=== PATIENT | male | born 1980 | race Caucasian/White ===

== ENCOUNTER 2022-10-03 18:00 | Emergency (ER) | payer BC, OTHER ==
[~2022-10-03] VITALS: Ht 168 cm; Wt 100.0 kg
--- NOTE | 2022-10-03 18:42 | ED Cardiac General ---
History of Present Illness General Chief Complaint: Chest Pain Stated Complaint: CHEST DISCOMFORT Nursing Triage Note: Patient ambulatory to room 4 in ER w c/o chest pain in the lower anterior region of the chest for "going on 2 weeks." Patient states his watch alerted him today that his heart rate dropped into the high 40's. Source: patient Exam Limitations: no limitations History of Present Illness Date Seen by Provider: Oct 03, 2022 Time Seen by Provider: 18:25 Initial Comments Patient is a 42-year-old male history of hypertriglyceridemia and hypertension who presents to the emergency room with a chief complaint of having a very low heart rate today while he was out at the [employer] theater' with his family. He also over the last several weeks has had periodic alerts from his watch that his heart rates been very high. He states he has not felt "quite right" periodically over the last several months. He moved in May from [facility] to [place]. He has been followed by a nursing scheduler for his high blood pressure and hypertriglyceridemia. He has had a stress test in 2018. Former light recreational smoker, nothing long-term. No family history of early coronary artery disease. He is not a diabetic. He states his only risk factor for his hypertension is really his weight. He is slightly obese. He denies shortness of breath, nausea or sweating. He does have a history of "GI issues". He has had prior partial sigmoid colectomy due to diverticulitis that ruptured. No concerns currently. No recent febrile illnesses. No COVID concerns. He does not take any stimulant medications. He does not use "energy drinks". He states the reason he came into the emergency department today was just because he got "freaked out" and needed some reassurance. At present completely asymptomatic heart rate in the 80s and 90s. Timing/Duration: 1 hour Severity: mild Prior CP/Workup: stress test (2018) NTG SL WRINGER MACHINE OPERATOR: No ASA po WRINGER MACHINE OPERATOR: No Associated Systoms: Other (palpitations, low heart rate) Allergies and Home Medications Patient Home Medication List Home Medication List Reviewed: Yes Review of Systems Review of Systems Constitutional: see HPI EENTM: No Symptoms Reported Respiratory: No Symptoms Reported Cardiovascular: Palpitations, Other (Low heart) Gastrointestinal: No Symptoms Reported Genitourinary: No Symptoms Reported Musculoskeletal: no symptoms reported Skin: no symptoms reported Psychiatric/Neurological: Anxiety All Other Systems Reviewed Negative Unless Noted: Yes Past Czlbrmy-Ruucdd-Mcytti Hx Patient Social History Tobacco Use?: No Substance use?: No Alcohol Use?: No Immunizations Up To Date COVID19 Vaccine Engineering Agent: moderna Physical Exam Vital Signs Vital Signs - First Documented 10/03/22 18:08 Temp 36.1 Pulse 99 Resp 18 B/P (MAP) 148/123 (131) Pulse Ox 97 O2 Delivery Room Air Capillary Refill : Less Than 3 Seconds Height, Weight, BMI Height: '" Weight: lbs. oz. kg; 35.00 BMI Method: General Appearance: No Apparent Distress, WD/WN HEENT: PERRL/EOMI Neck: Normal Inspection, Non Tender, Supple Respiratory: Lungs Clear, Normal Breath Sounds, No Accessory Muscle Use, No Respiratory Distress Cardiovascular: Regular Rate, Rhythm, No Gallop, No Murmur, Normal Peripheral Pulses Gastrointestinal: Normal Bowel Sounds, Non Tender, Soft Extremity: Normal Capillary Refill, Normal Inspection, Normal Range of Motion, Non Tender, No Calf Tenderness Neurologic/Psychiatric: Alert, Oriented x3, No Motor/Sensory Deficits Skin: Normal Color, Warm/Dry Progress/Results/Core Measures Results/Orders Lab Results Laboratory Tests Test 10/03/22 18:10 Range/Units White Blood Count 11.3 H 4.3-11.0 10^3/uL Red Blood Count 5.56 H 4.30-5.52 10^6/uL Hemoglobin 16.1 13.3-17.7 g/dL Hematocrit 46 40-54 % Mean Corpuscular Volume 82 80-99 fL Mean Corpuscular Hemoglobin 29 25-34 pg Mean Corpuscular Hemoglobin Concent 35 32-36 g/dL Red Cell Distribution Width 12.7 10.0-14.5 % Platelet Count 243 130-400 10^3/uL Mean Platelet Volume 9.7 9.0-12.2 fL Immature Granulocyte % (Auto) 0 % Neutrophils (%) (Auto) 61 42-75 % Lymphocytes (%) (Auto) 29 12-44 % Monocytes (%) (Auto) 6 0-12 % Eosinophils (%) (Auto) 4 0-10 % Basophils (%) (Auto) 0 0-10 % Neutrophils # (Auto) 6.9 1.8-7.8 10^3/uL Lymphocytes # (Auto) 3.3 1.0-4.0 10^3/uL Monocytes # (Auto) 0.7 0.0-1.0 10^3/uL Eosinophils # (Auto) 0.4 H 0.0-0.3 10^3/uL Basophils # (Auto) 0.0 0.0-0.1 10^3/uL Immature Granulocyte # (Auto) 0.1 0.0-0.1 10^3/uL Prothrombin Time 12.7 12.2-14.7 SEC INR Comment 0.9 0.8-1.4 Activated Partial Thromboplast Time 29 24-35 SEC D-Dimer < 0.27 0.00-0.49 UG/ML Sodium Level 138 135-145 MMOL/L Potassium Level 3.3 L 3.6-5.0 MMOL/L Chloride Level 102 98-107 MMOL/L Carbon Dioxide Level 25 21-32 MMOL/L Anion Gap 11 5-14 MMOL/L Blood Urea Nitrogen 13 7-18 MG/DL Creatinine 1.01 0.60-1.30 MG/DL Estimat Glomerular Filtration Rate 94 BUN/Creatinine Ratio 13 Glucose Level 121 H 70-105 MG/DL Calcium Level 9.4 8.5-10.1 MG/DL Corrected Calcium 9.0 8.5-10.1 MG/DL Magnesium Level 2.2 1.6-2.4 MG/DL Total Bilirubin 0.6 0.1-1.0 MG/DL Aspartate Amino Transf (AST/SGOT) 24 5-34 U/L Alanine Aminotransferase (ALT/SGPT) 40 0-55 U/L Alkaline Phosphatase 75 40-136 U/L Troponin I < 0.028 <0.028 NG/ML Total Protein 7.8 6.4-8.2 GM/DL Albumin 4.5 3.2-4.5 GM/DL My Orders Orders - EDELMIRA MENDOZA MD Cbc With Automated Diff (10/03/22 18:41) Magnesium (10/03/22 18:41) Chest 1 View, Ap/Pa Only (10/03/22 18:41) Comprehensive Metabolic Panel (10/03/22 18:41) Protime With Inr (10/03/22 18:41) Partial Thromboplastin Time (10/03/22 18:41) O2 (10/03/22 18:41) Monitor-Rhythm Ecg Trace Only (10/03/22 18:41) Ed Iv/Invasive Line Start (10/03/22 18:41) Troponin I Prentiss (10/03/22 18:41) Fibrin Degradation Products (10/03/22 18:41) Vital Signs/I&O 10/03/22 10/03/22 18:08 20:00 Temp 36.1 36.1 Pulse 99 84 Resp 18 18 B/P (MAP) 148/123 (131) 129/89 Pulse Ox 97 97 O2 Delivery Room Air Room Air Blood Pressure Mean: 131 Progress Progress Note : Time: 19:54 Progress Note Patient seen and examined by me, 42-year-old with palpitations/episodic bradycardia. Evaluation today includes physical exam, CBC, chemistry, troponin, D-dimer, EKG, chest x-ray patient's exam is overall not concerning. No abnormal cardiac murmurs, clear lungs, soft abdomen. Normal vital signs, no hypoxia/tachycardia or bradycardia. Normal blood pressure. No lower extremity swelling or pain. Differential diagnosis includes arrhythmia versus electrolyte disturbance impacting heart rhythm. Labs reviewed and all within normal limits. Troponin undetectable, D-dimer undetectable. Chest x-ray is normal, EKG shows normal sinus rhythm at 94 beats a minute with slightly prolonged QRS. Patient has remained asymptomatic throughout his stay here in the emergency department. I have reassured him that the work-up today is unremarkable. I did recommend follow-up with cardiology and gave him information for Dr. Correa who is on our call schedule today. I also provided him with a local physician list for continued routine health maintenance. The patient verbalized understanding and is comfortable with the plan of care. All questions are sought and answered. Patient is stable for discharge. Initial ECG Impression Date: Oct 03, 2022 Initial ECG Impression Time: 18:10 Initial ECG Rate: 94 Initial ECG Rhythm: Normal Sinus Initial ECG Intervals ID 143 QRS 124 QTc 447 Initial ECG Impression: Normal Comment No ST segment elevation or depression is noted. Q waves lead III. Slightly prolonged QRS at 124/nonspecific intraventricular conduction delay. Diagnostic Imaging Diagonstic Imaging: Xray Plain Films/CT/US/NM/MRI: chest Comments [facility]. [place], [place] NAME: HAYDEE MONTENEGRO Suzanne [facility] REC#: [id number] PT STATUS: REG ER : 1980 PHYSICIAN: EDELMIRA MENDOZA MD ADMIT DATE: 10/03/22/ER Draft Date of Exam:10/03/22 CHEST 1 VIEW, AP/PA ONLY EXAMINATION: Chest 1 view. HISTORY: Chest pain. COMPARISON: None available. FINDINGS: The lungs are clear without edema or pneumonia. No pleural effusion or pneumothorax. Heart size is normal. A small nodule projecting over the left lung base is favored to be calcified. IMPRESSION: 1. No acute abnormality in the chest. 2. Small nodule projecting over the left lower chest is favored to be calcified but a chest CT is recommended for confirmation. Dictated on workstation # [id number] Dict: 10/03/22 1856 Trans: 10/03/22 1901 [facility] [id number] Interpreted by: MAGDY WISE MD Electronically signed by: Departure Impression Primary Impression: Palpitations Additional Impression: concern for bradycardia Disposition: 01 HOME, SELF-CARE Condition: Stable Departure-Patient Inst. Decision time for Depature: 19:52 Referrals: SARA CORREA MD NO,LOCAL PHYSICIAN (PCP) Primary Care Physician Patient Instructions: LOCAL PHYSICIAN LIST, Palpitations (DC) Add. Discharge Instructions: Please continue your daily routine home medications. If you develop symptoms with either slow heartbeat or very rapid heartbeat such as shortness of breath, chest pain, nausea or sweating please come back to the emergency room for reevaluation. I have attached contact information for Dr. Correa our nursing scheduler on-call. I will send a copy of your chart and lab work to his office. I have also put a local physician list referral list on your discharge packet. You can use this for primary care follow-up. If you have any other new, concerning or emergent complaints please come back to the emergency room for reevaluation. Copy Copies To 1: SARA CORREA MD, KATHRYN M MD Oct 03, 2022 18:42
[2022-10-03 18:49] LABS: BASOPHILS % (AUTO) 0 % (0-10); EOSINOPHILS # (AUTO) 0.4 10^3/uL (0.0-0.3); EOSINOPHILS % (AUTO) 4 % (0-10); HEMATOCRIT 46 % (40-54); HEMOGLOBIN 16.1 g/dL (13.3-17.7); LYMPHOCYTES # (AUTO) 3.3 10^3/uL (1.0-4.0); LYMPHOCYTES % (AUTO) 29 % (12-44); MEAN CORPUSCULAR HEMOGLOBIN 29 pg (25-34); MEAN CORPUSCULAR HGB CONC 35 g/dL (32-36); MEAN CORPUSCULAR VOLUME 82 fL (80-99); MEAN PLATELET VOLUME 9.7 fL (9.0-12.2); MONOCYTES # (AUTO) 0.7 10^3/uL (0.0-1.0); MONOCYTES % (AUTO) 6 % (0-12); NEUTROPHILS # (AUTO) 6.9 10^3/uL (1.8-7.8); NEUTROPHILS % (AUTO) 61 % (42-75); PLATELET COUNT 243 10^3/uL (130-400); WHITE BLOOD COUNT 11.3 10^3/uL (4.3-11.0)
[2022-10-03 18:52] LABS: ALBUMIN 4.5 GM/DL (3.2-4.5); POTASSIUM 3.3 MMOL/L (3.6-5.0)
[2022-10-03 18:53] LABS: CALCIUM 9.4 MG/DL (8.5-10.1)
[2022-10-03 18:55] LABS: TOTAL PROTEIN 7.8 GM/DL (6.4-8.2)
[2022-10-03 18:56] LABS: BILIRUBIN,TOTAL 0.6 MG/DL (0.1-1.0)
[2022-10-03 18:58] LABS: CREATININE SERUM 1.01 MG/DL (0.60-1.30)
[2022-10-03 19:01] LABS: MAGNESIUM 2.2 MG/DL (1.6-2.4)
--- NOTE | 2022-10-03 19:01 | Diagnostic Imaging Report ---
EXAMINATION: Chest 1 view. HISTORY: Chest pain. COMPARISON: None available. FINDINGS: The lungs are clear without edema or pneumonia. No pleural effusion or pneumothorax. Heart size is normal. A small nodule projecting over the left lung base is favored to be calcified. IMPRESSION: 1. No acute abnormality in the chest. 2. Small nodule projecting over the left lower chest is favored to be calcified but a chest CT is recommended for confirmation. Dictated by: Dictated on workstation # [email or web address]
[2022-10-03 19:09] LABS: INR 0.9 (0.8-1.4); PROTHROMBIN TIME PATIENT 12.7 SEC (12.2-14.7)
[2022-10-03 20:00] VITALS: BP 129/89
== END 2022-10-03 20:01 | disposition home or self-care (01) ==
LOC: ER 18:02
DX: R00.2 Palpitations (principal); R94.31 Abnormal electrocardiogram [ECG] [EKG]; E66.9 Obesity, unspecified; Z68.35 Body mass index [BMI] 35.0-35.9, adult; Z87.891 Personal history of nicotine dependence; Z28.311 Partially vaccinated for COVID-19
CPT/HCPCS: 36415; 71045; 80053; 83735; 84484; 85025; 85379; 85610; 85730; 93005; 93041